=== PATIENT | male | born 1970 | race Two or more races ===

== ENCOUNTER 2018-02-27 12:21 | Emergency (ER) | payer MEDICAID ==
[~2018-02-27] VITALS: Ht 152.4 cm; Wt 70.3 kg
[2018-02-27 12:32] VITALS: BP 132/89
[2018-02-27] MEDS ORDERED: Ketorolac 60mg Inj IM ONE (12:45)
--- NOTE | 2018-02-27 12:55 | Emergency Room Report ---
History of Present Illness General Chief Complaint: Abdominal Pain Source: Patient Present Illness HPI Patient is a 47-year-old male who presented after increased right-sided abdominal and flank pain. The patient reports having symptoms for the past few days. He denies any vomiting. He reports having increased nausea. Patient stated that he had the been recently seen by the clinic and was given prescription for omeprazole. Pain had continued. He reports having increased urinary frequency. He denies any fever. He reports having some episodes of dark urine. Allergies: Coded Allergies: No Known Allergies (Unverified , 02/27/18) Patient History Past Medical History: see triage record Reviewed Nursing Documentation: PMH: Agreed; PSxH: Agreed Nursing Documentation-PMH Past Medical History: No History, Except For Hx Gastrointestinal Problems: Yes - Gastritis Review of Systems All Other Systems: negative except mentioned in HPI Physical Exam Vital Signs Date Time Temp Pulse Resp B/P (MAP) Pulse Ox O2 Delivery O2 Flow Rate FiO2 02/27/18 12:26 98.5 84 16 132/89 96 Room Air 98.4 Sp02 EP Interpretation: reviewed, normal General Appearance: normal inspection, well appearing, no apparent distress, alert, GCS 15 Head: atraumatic ENT: normal ENT inspection, hearing grossly normal, normal voice Neck: normal inspection, full range of motion, supple, no bony tend Respiratory: normal inspection, lungs clear, normal breath sounds, no respiratory distress, no retraction, no wheezing Cardiovascular #1: regular rate, rhythm, no edema Gastrointestinal: normal inspection, normal bowel sounds, non tender, soft, no guarding, no hernia Genitourinary: no CVA tenderness Musculoskeletal: normal inspection, back normal, normal range of motion Neurologic: normal inspection, alert, oriented x3, responsive, floor technician III-XII nml as tested, speech normal Psychiatric: normal inspection, judgement/insight normal, mood/affect normal Skin: normal inspection, normal color, no rash Medical Decision Making Diagnostic Impression: Primary Impression: Renal calculus, right ER Course Patient presented for flank pain. Differential diagnosis included was not limited to pneumonia, renal stone, rib fracture, pulmonary embolism, ulcer, enteritis, pyelonephritis among others. Because of complexity of patient's case laboratory testing and imaging studies were ordered.CT imaging of the abdomen pelvis read by radiology showed right-sided renal stones as well as fatty liver. The patient was given prescription for pain medications as well as for antibiotics. The patient was advised follow-up with urology for further management of renal stones and expectant management the at this time.The patient given Toradol for pain. The urinalysis showed no definite infection.The patient is advised to follow up with primary care doctor in 1-2 days. Patient is advised to return if any worsening condition or if any changes in status that are concerning. This report is dictated with [employer] operations leader software which may occasionally lead to discrepancies related to use of this software. Labs Test 02/27/18 12:56 Urine Color Yellow Urine Appearance Clear Urine pH 6 (4.5-8.0) Urine Specific [place] 1.020 (1.005-1.035) Urine Protein 1+ (NEGATIVE) Urine Glucose (UA) Negative (NEGATIVE) Urine Ketones Negative (NEGATIVE) Urine Blood 5+ (NEGATIVE) Urine Nitrite Negative (NEGATIVE) Urine Bilirubin Negative (NEGATIVE) Urine Urobilinogen Normal MG/DL (0.0-1.0) Urine Leukocyte Esterase Negative (NEGATIVE) Urine RBC 5-10 /HPF (0 - 0) Urine WBC 0 /HPF (0 - 0) Urine Squamous Epithelial Cells None /LPF (NONE/OCC) Urine Bacteria Occasional /HPF (NONE) Urine Mucus Few /LPF (NONE/OCC) Last Vital Signs Date Time Temp Pulse Resp B/P (MAP) Pulse Ox O2 Delivery O2 Flow Rate FiO2 02/27/18 12:32 98.4 16 132/89 96 Room Air 98.4 02/27/18 12:26 84 Status: improved Disposition: HOME, SELF-CARE Condition: Stable Scripts Ibuprofen* (MOTRIN*) 600 Mg Tablet 600 MG ORAL Q8H PRN for For Pain, #30 TAB 0 Refills Prov: Catarino Moreira MD 02/27/18 Cephalexin* (KEFLEX*) 500 Mg Capsule 500 MG ORAL EVERY 6 HOURS, #20 CAP Prov: Catarino Moreira MD 02/27/18 Hydrocodone Bit/Acetaminophen 5-325* (NORCO 5-325*) 1 Each Tablet 1 TAB ORAL Q6H PRN for For Pain, #20 TAB 0 Refills Prov: Catarino Moreira MD 02/27/18 Referrals: NOT CHOSEN IPA/,REFERRING (PCP) Catarino Moreira MD Feb 27, 2018 12:55
[2018-02-27 13:24] LABS: APPEARANCE,URINE CLEAR; BILIRUBIN, URINE NEGATIVE (NEGATIVE); GLUCOSE, URINE (UA) NEGATIVE (NEGATIVE); KETONES,URINE NEGATIVE (NEGATIVE); LEUKOCYTE ESTERASE ,URINE NEGATIVE (NEGATIVE); NITRITE,URINE NEGATIVE (NEGATIVE); PH,URINE 6 (4.5-8.0); PROTEIN,URINE 1+ (NEGATIVE); UROBILINOGEN,URINE NORMAL MG/DL (0.0-1.0)
[2018-02-27] MEDS ORDERED: CEPHALEXIN500 MG ORAL (13:29)
[2018-02-27] MEDS ORDERED: NORCO 5-325 TA1 EACH ORAL (13:29)
[2018-02-27] MEDS ORDERED: IBUPROFEN600 MG ORAL (13:29)
[2018-02-27 13:42] LABS: COLOR,URINE YELLOW
--- NOTE | 2018-02-27 13:51 | Diagnostic Imaging Report ---
EXAM: CT Abdomen and Pelvis Without Intravenous Contrast CLINICAL HISTORY: ABD PAIN TECHNIQUE: Axial computed tomography images of the abdomen and pelvis without intravenous contrast. One or more of the following dose reduction techniques were used: automated exposure control, adjustment of the mA and/or kV according to patient size, use of iterative reconstruction technique. CT DI 15.47 DLP 859 COMPARISON: No relevant prior studies available. FINDINGS: Lung bases: Mild basilar atelectasis, most pronounced to the lingula.. ABDOMEN: Liver: Hepatic steatosis. Gallbladder and bile ducts: Unremarkable. No calcified stones. No ductal dilation. Pancreas: Unremarkable. No ductal dilation. Spleen: Unremarkable. No splenomegaly. Adrenals: Unremarkable. No mass. Kidneys and ureters: 5 mm calculus at the right ureterovesical junction causing mild-moderate hydroureteronephrosis. 4 mm upper pole and 3 mm mid zone right intrarenal stones. Stomach and bowel: Unremarkable. No obstruction. No mucosal thickening. PELVIS: Appendix: Unremarkable appendix. Bladder: Unremarkable. No stones. Reproductive: Unremarkable as visualized. ABDOMEN and PELVIS: Intraperitoneal space: Unremarkable. No free air. No significant fluid collection. Bones/joints: No acute fracture. T10 butterfly vertebra Soft tissues: Unremarkable. Vasculature: Unremarkable. No abdominal aortic aneurysm. Lymph nodes: Unremarkable. No enlarged lymph nodes. IMPRESSION: 5 mm calculus at the right ureterovesical junction causing mild- moderate hydroureteronephrosis. Multiple right intrarenal stones. Hepatic steatosis.
[2018-02-27 14:02] VITALS: BP 112/68
== END 2018-02-27 14:02 | disposition home or self-care (01) ==
LOC: EMR 12:45
DX: N20.0 Calculus of kidney (principal)
CPT/HCPCS: 74176; 81003; 96372; 99284